=== PATIENT | female | born 1955 | race Caucasian/White ===

== ENCOUNTER → 2018-10-13 | Outpatient (CLI) | payer MEDICARE | END | disposition home or self-care (01) | LOC: CFH 13:01 | PROVIDERS: ATTEND Nurse Practitioner Family | DX: R92.0 Mammographic microcalcification found on diagnostic imaging of breast (principal) | CPT/HCPCS: 77066 ==

== ENCOUNTER 2018-11-18 09:05 | Outpatient (CLI) | payer MEDICARE | END 2018-11-18 23:59 | disposition home or self-care (01) | LOC: CFH 09:05 | PROVIDERS: ATTEND Nurse Practitioner Family | DX: N63.10 Unspecified lump in the right breast, unspecified quadrant (principal); Z53.9 Procedure and treatment not carried out, unspecified reason | CPT/HCPCS: 19081; 77065 ==

== ENCOUNTER 2018-11-18 11:01 | Emergency (ER) | payer MEDICARE ==
[~2018-11-18] VITALS: Ht 160 cm; Wt 95.8 kg
[2018-11-18 11:11] VITALS: BP 110/55
== END 2018-11-18 12:06 | disposition home or self-care (01) ==
LOC: ED 11:50
DX: B35.4 Tinea corporis (principal); E11.9 Type 2 diabetes mellitus without complications; F17.200 Nicotine dependence, unspecified, uncomplicated; Z90.49 Acquired absence of other specified parts of digestive tract
CPT/HCPCS: 99283

== ENCOUNTER 2019-04-04 17:07 | Emergency (ER) | payer MEDICARE ==
[~2019-04-04] VITALS: Ht 160 cm; Wt 72.1 kg
--- NOTE | 2019-04-04 17:28 | NUR ---
PT BIB EMS FROM [place] FOR NEW ONSERT OF BOWEL CHANGES AND NOT FEELING WELL. PER PT SHE WAS CONSTIPATED FOR 3 DAYS AND THEN THESE PAST FEW DAYS SHE STARTED TO HAVE LOOSE BM. PT DENIES ANY RECENT ILLNESS, PT REPORTS THAT HER ABD HAS SOME ABD PAIN. PT IS UNSTEADY ON HER GAIT. PT REPORTS SHE ALSO FEELS DEHYDRATED. PT IS A/OX4 AT THIS TIME. PT CONNECTED TO MONITORS AND CALL LIGHT IN REACH. AWAITING FURTHER ORDERS.
[2019-04-04] MEDS ORDERED: NABU500T PO (17:35)
[2019-04-04] MEDS ORDERED: BUPR150T13 PO (17:35)
[2019-04-04] MEDS ORDERED: CITA20TA6 PO (17:35)
[2019-04-04] MEDS ORDERED: ASPI-515 PO (17:35)
[2019-04-04] MEDS ORDERED: CLOP75TA PO (17:35)
[2019-04-04] MEDS ORDERED: OXYB10TA2 PO (17:35)
[2019-04-04] MEDS ORDERED: GLIP5TAB10 PO (17:35)
[2019-04-04] MEDS ORDERED: ATOR-2 PO (17:35)
--- NOTE | 2019-04-04 18:40 | NUR ---
BEDSIDE REPORT TO DEMETRIUS Kelly RN.
[2019-04-04] MEDS ORDERED: MAGNESIUM CITRATE 300ML ORAL SOL PO ONE (19:00)
[2019-04-04] MEDS ORDERED: MAGNESIUM CITRATE 300ML ORAL SOL ONE (19:05)
--- NOTE | 2019-04-04 19:19 | NUR ---
OFFSET DUPLICATING MACHINE OPERATOR PULLED MAG [facility] AND EXPLAINED TO PATIENT SHE IS TO TAKE MEDICINE ONCE SHE IS AT HOME. A COURTESY OFFSET DUPLICATING MACHINE OPERATOR CALLED PATIENT'S [facility] TO EXPLAIN PROVIDER DIAGNOSIS NAD PLAN. WHOMEVER ANSWERED THE PHONE (WOULD NOT PROVIDE NAME) REPORT'S "WE DO NOT WANT HER BACK HERE. SHE IS CAUSING TOO MUCH TROUBLE. I HAVBE ALREADY HAD TO DO HER LAUNDRY TWICE. SHE IS ALSO TOO MENTALLY ILL. SHE IS NOT EATING. SHE NEEDS TO GO BACK TO A CARE HOME." OFFSET DUPLICATING MACHINE OPERATOR EXPLAINED THAT PATIENT SAFE TO RETURN TO [facility] AND [facility] WOULD PASS IN A DAY OR TOO. [facility] EXMPLOYEE INSISTENT PATIENT "CANNOT RETURN." OFFSET DUPLICATING MACHINE OPERATOR TO CALL SW/LET PROVIDER KNOW
--- NOTE | 2019-04-04 20:03 | NUR ---
STOOL SAMPLE OBTAINED -WALKED TO LAB FULL PIA CARE PERFORMED INCLUDING BARRIER CREAM AND NEW BRIEFS
[2019-04-04 21:00] LABS: CLOSTRIDIUM DIFFICILE ANTIGEN NEGATIVE; CLOSTRIDIUM DIFFICILE TOXIN NEGATIVE (Negative)
--- NOTE | 2019-04-04 21:50 | NUR ---
CALLED REPORT TO LONG-TERM. REVIEWED POC: MAG [facility] AND STAY NEAR TOLIET FOR A FEW HOURS, THEN FIBER/FLUIDS. F/U WITH PCP
[2019-04-04 21:57] VITALS: BP 152/77
== END 2019-04-04 22:00 | disposition home or self-care (01) ==
LOC: ED 19:25
DX: K59.00 Constipation, unspecified (principal); R11.2 Nausea with vomiting, unspecified; I10 Essential (primary) hypertension; E11.9 Type 2 diabetes mellitus without complications; M19.90 Unspecified osteoarthritis, unspecified site; Z90.49 Acquired absence of other specified parts of digestive tract
CPT/HCPCS: 74021; 87324; 99284